=== PATIENT | female | born 1940 | race Caucasian/White ===

== ENCOUNTER 2022-03-20 19:19 | Inpatient (IN) | payer MEDICARE ==
[~2022-03-20] VITALS: Ht 162.6 cm; Wt 54.4 kg
[~2022-03-20 19:19] MED LIST: ARMOUR THYROID30 MG PO; LISINOPRIL20 MG PO; NEXIUM40 M1 PO; PREDNISONE20 MG PO
[2022-03-20 19:52] LABS: BASOPHILS # (AUTO) 0.1 (0.0-0.1); BASOPHILS % 0.8 % (0.0-1.0); EOSINOPHILS # (AUTO) 0.2 (0.0-0.4); EOSINOPHILS % 2.8 % (0.0-6.0); HEMOGLOBIN 13.9 g/dL (12.0-16.0); LYMPHOCYTES # (AUTO) 1.3 (1.0-3.2); LYMPHOCYTES % 17.6 % (18.0-39.1); MEAN CORPUSCULAR HEMOGLOBIN 31.7 pg (28-32); MEAN CORPUSCULAR HGB CONC 34.8 g/dL (31-35); MEAN CORPUSCULAR VOLUME 91.1 fL (81-99); MONOCYTES # (AUTO) 0.6 (0.2-0.8); MONOCYTES % 7.9 % (4.4-11.3); NEUTROPHILS # (AUTO) 5.3 (2.1-6.9); NEUTROPHILS % 69.7 % (38.7-80.0); PLATELET COUNT 171 x10e3/uL (140-360); RED BLOOD COUNT 4.39 x10e6/uL (3.6-5.1); RED CELL DISTRIBUTION WIDTH 15.7 % (11.7-14.4)
[2022-03-20 20:27] LABS: ALBUMIN 2.5 g/dL (3.5-5.0); ANION GAP 16.6 mmol/L (8-16); CALCIUM 7.9 mg/dL (8.4-10.2); CREATININE, SERUM 2.06 mg/dL (0.57-1.11); POTASSIUM 3.6 mmol/L (3.5-5.1)
[2022-03-20 21:57] LABS: CLARITY,URINE SL CLOUDY (CLEAR); COLOR,URINE AMBER (YELLOW); KETONES,URINE TRACE (NEGATIVE); LEUKOCYTE ESTERASE ,URINE MODERATE (NEGATIVE); NITRITE,URINE NEGATIVE (NEGATIVE); PROTEIN,URINE DIPSTICK TRACE (NEGATIVE); URINE UROBILINOGEN 0.2 mg/dL (0.2 - 1)
[2022-03-20 22:00] VITALS: BP 117/82
[2022-03-20 22:07] LABS: BACTERIA,URINE FEW /HPF; EPITHELIAL CELLS,URINE RARE /LPF; RBC,URINE 0-5 /HPF (0-5)
[2022-03-20 22:08] LABS: AMORPHOUS SEDIMENT,URINE MODERATE (FEW); YEAST,URINE MODERATE
[2022-03-20] MEDS ORDERED: FLUCONAZOLE 200 MG/100 ML 100 ML IV SCH (23:40)
[2022-03-20] MEDS: SODIUM CHLORIDE 0.9% 1000ML 1,000 ML IV SCH (23:43)
[2022-03-20] MEDS ORDERED: FLUCONAZOLE 200 MG/100 ML 100 ML IV ONE (23:47)
[2022-03-21] VITALS (7 sets, daily range): BP systolic 92–117; BP diastolic 59–82
[2022-03-21 05:43] LABS: BASOPHILS # (AUTO) 0.1 (0.0-0.1); BASOPHILS % 0.8 % (0.0-1.0); EOSINOPHILS # (AUTO) 0.2 (0.0-0.4); EOSINOPHILS % 3.8 % (0.0-6.0); HEMOGLOBIN 12.4 g/dL (12.0-16.0); LYMPHOCYTES # (AUTO) 1.8 (1.0-3.2); LYMPHOCYTES % 28.2 % (18.0-39.1); MEAN CORPUSCULAR HEMOGLOBIN 31.5 pg (28-32); MEAN CORPUSCULAR HGB CONC 34.4 g/dL (31-35); MEAN CORPUSCULAR VOLUME 91.4 fL (81-99); MONOCYTES # (AUTO) 0.5 (0.2-0.8); NEUTROPHILS # (AUTO) 3.7 (2.1-6.9); NEUTROPHILS % 58.1 % (38.7-80.0); PLATELET COUNT 154 x10e3/uL (140-360); RED BLOOD COUNT 3.94 x10e6/uL (3.6-5.1); RED CELL DISTRIBUTION WIDTH 15.5 % (11.7-14.4)
[2022-03-21 05:59] LABS: ANION GAP 11.1 mmol/L (8-16); CALCIUM 7.7 mg/dL (8.4-10.2); CREATININE, SERUM 1.82 mg/dL (0.57-1.11); POTASSIUM 3.1 mmol/L (3.5-5.1)
[2022-03-21] MEDS ORDERED: POTASSIUM CHLORIDE 10MEQ EA PO ONE ×2 (09:00→11:00)
[2022-03-21] MEDS: SODIUM CHLORIDE 0.9% 1000ML 1,000 ML IV SCH ×3 (09:21→20:10)
[2022-03-21] MEDS ORDERED: DIPHENHYDRAMINE HCL 25 MG CAP PO ONE (10:15)
[2022-03-21 10:17] LABS: INR 0.96; PROTHROMBIN TIME 13.7 seconds (11.9-14.5)
[2022-03-21 10:18] LABS: PARTIAL THROMBOPLASTIN TIME 25.9 seconds (23.8-35.5)
[2022-03-21] MEDS: BACITRACIN ZINC 15 GM OINT TOP SCH (15:00)
[2022-03-21] MEDS: DIPHENHYDRAMINE HCL 25 MG CAP PO PRN ×2 (15:27→22:35)
[2022-03-21] MEDS: FLUCONAZOLE 200 MG/100 ML 100 ML IV SCH (20:10)
[2022-03-21] MEDS: TRAMADOL HCL 50 MG TAB PO PRN (23:38)
[2022-03-22 01:01] VITALS: BP 112/71
[2022-03-22] MEDS: SODIUM CHLORIDE 0.9% 1000ML 1,000 ML IV SCH ×3 (04:22→21:19)
[2022-03-22 05:48] VITALS: BP 115/74
[2022-03-22 06:04] LABS: HEMATOCRIT 38.9 % (34.2-44.1); HEMOGLOBIN 12.8 g/dL (12.0-16.0); RED BLOOD COUNT 4.08 x10e6/uL (3.6-5.1)
[2022-03-22 06:05] LABS: BASOPHILS # (AUTO) 0.1 (0.0-0.1); BASOPHILS % 0.9 % (0.0-1.0); EOSINOPHILS # (AUTO) 0.3 (0.0-0.4); EOSINOPHILS % 3.9 % (0.0-6.0); LYMPHOCYTES # (AUTO) 1.5 (1.0-3.2); LYMPHOCYTES % 23.7 % (18.0-39.1); MEAN CORPUSCULAR HEMOGLOBIN 31.4 pg (28-32); MEAN CORPUSCULAR HGB CONC 32.9 g/dL (31-35); MEAN CORPUSCULAR VOLUME 95.3 fL (81-99); MONOCYTES # (AUTO) 0.5 (0.2-0.8); MONOCYTES % 8.3 % (4.4-11.3); NEUTROPHILS # (AUTO) 3.9 (2.1-6.9); NEUTROPHILS % 61.5 % (38.7-80.0); PLATELET COUNT 155 x10e3/uL (140-360); RED CELL DISTRIBUTION WIDTH 15.9 % (11.7-14.4)
[2022-03-22 06:32] LABS: CALCIUM 7.7 mg/dL (8.4-10.2); CREATININE, SERUM 1.58 mg/dL (0.57-1.11)
[2022-03-22 08:27] VITALS: BP 100/62
[2022-03-22] MEDS: PREDNISONE 10 MG TAB PO SCH (09:36)
[2022-03-22] MEDS: THYROID 60 MG TAB PO SCH (09:36)
[2022-03-22 11:41] VITALS: BP 91/69
[2022-03-22] MEDS: BACITRACIN ZINC 15 GM OINT TOP SCH (14:59)
[2022-03-22 16:18] VITALS: BP 104/74
[2022-03-22] MEDS: TRAMADOL HCL 50 MG TAB PO PRN (17:00)
[2022-03-22] MEDS: DIPHENHYDRAMINE HCL 25 MG CAP PO PRN (17:23)
[2022-03-22 20:23] VITALS: BP 115/82
[2022-03-22] MEDS: FLUCONAZOLE 200 MG/100 ML 100 ML IV SCH (21:00)
[2022-03-23] VITALS (7 sets, daily range): BP systolic 103–119; BP diastolic 64–81
[2022-03-23] MEDS: TRAMADOL HCL 50 MG TAB PO PRN ×2 (00:42→21:13)
[2022-03-23] MEDS: DIPHENHYDRAMINE HCL 25 MG CAP PO PRN ×2 (00:42→21:12)
[2022-03-23 06:23] LABS: BASOPHILS # (AUTO) 0.1 (0.0-0.1); BASOPHILS % 0.6 % (0.0-1.0); EOSINOPHILS # (AUTO) 0.2 (0.0-0.4); EOSINOPHILS % 1.9 % (0.0-6.0); HEMATOCRIT 38.5 % (34.2-44.1); HEMOGLOBIN 13.1 g/dL (12.0-16.0); LYMPHOCYTES # (AUTO) 1.6 (1.0-3.2); LYMPHOCYTES % 19.5 % (18.0-39.1); MEAN CORPUSCULAR HEMOGLOBIN 31.6 pg (28-32); MEAN CORPUSCULAR VOLUME 92.8 fL (81-99); MONOCYTES # (AUTO) 0.6 (0.2-0.8); MONOCYTES % 7.7 % (4.4-11.3); NEUTROPHILS # (AUTO) 5.7 (2.1-6.9); PLATELET COUNT 178 x10e3/uL (140-360); RED BLOOD COUNT 4.15 x10e6/uL (3.6-5.1); RED CELL DISTRIBUTION WIDTH 16.4 % (11.7-14.4)
[2022-03-23 06:53] LABS: ALBUMIN 2.2 g/dL (3.5-5.0); ALBUMIN/GLOBULIN RATIO 1.1 (0.8-2.0); ANION GAP 12.6 mmol/L (8-16); CALCIUM 8.1 mg/dL (8.4-10.2); CREATININE, SERUM 1.69 mg/dL (0.57-1.11); POTASSIUM 5.6 mmol/L (3.5-5.1)
[2022-03-23] MEDS: SODIUM CHLORIDE 0.9% 1000ML 1,000 ML IV SCH ×3 (07:00→23:00)
[2022-03-23] MEDS: PREDNISONE 10 MG TAB PO SCH (09:00)
[2022-03-23] MEDS: THYROID 60 MG TAB PO SCH (09:00)
[2022-03-23 09:35] LABS: ANION GAP 14.4 mmol/L (8-16); CALCIUM 7.9 mg/dL (8.4-10.2); CREATININE, SERUM 1.69 mg/dL (0.57-1.11); POTASSIUM 5.4 mmol/L (3.5-5.1)
[2022-03-23] MEDS: BACITRACIN ZINC 15 GM OINT TOP SCH (13:52)
[2022-03-23] MEDS ORDERED: FLUCONAZOLE 200 MG/100 ML 100 ML IV SCH ×2 (14:00→18:30)
[2022-03-23] MEDS ORDERED: FLUCONAZOLE 100 MG TAB PO SCH (20:00)
[2022-03-24 01:09] VITALS: BP 117/75
[2022-03-24 01:24] VITALS: BP 107/47
[2022-03-24 05:31] VITALS: BP 92/81
[2022-03-24 05:32] LABS: BASOPHILS % 0.5 % (0.0-1.0); EOSINOPHILS # (AUTO) 0.1 (0.0-0.4); EOSINOPHILS % 1.3 % (0.0-6.0); HEMATOCRIT 39.3 % (34.2-44.1); HEMOGLOBIN 13.1 g/dL (12.0-16.0); LYMPHOCYTES # (AUTO) 1.9 (1.0-3.2); MEAN CORPUSCULAR HEMOGLOBIN 31.5 pg (28-32); MEAN CORPUSCULAR HGB CONC 33.3 g/dL (31-35); MEAN CORPUSCULAR VOLUME 94.5 fL (81-99); MONOCYTES # (AUTO) 0.7 (0.2-0.8); MONOCYTES % 8.5 % (4.4-11.3); NEUTROPHILS # (AUTO) 5.4 (2.1-6.9); NEUTROPHILS % 65.4 % (38.7-80.0); PLATELET COUNT 154 x10e3/uL (140-360); RED BLOOD COUNT 4.16 x10e6/uL (3.6-5.1); RED CELL DISTRIBUTION WIDTH 16.5 % (11.7-14.4)
[2022-03-24 05:56] LABS: ANION GAP 13.9 mmol/L (8-16); CALCIUM 7.3 mg/dL (8.4-10.2); CREATININE, SERUM 1.67 mg/dL (0.57-1.11); POTASSIUM 5.9 mmol/L (3.5-5.1)
[2022-03-24] MEDS: SODIUM CHLORIDE 0.9% 1000ML 1,000 ML IV SCH (07:00)
[2022-03-24] MEDS ORDERED: SOD POLYSTYRENE SULFONATE SUSP 15 GM/60 ML BTL PO ONE (08:00)
[2022-03-24 08:51] VITALS: BP 110/66
[2022-03-24 09:10] VITALS: BP 110/66
[2022-03-24] MEDS: THYROID 60 MG TAB PO SCH (10:15)
[2022-03-24] MEDS: BACITRACIN ZINC 15 GM OINT TOP SCH (10:15)
[2022-03-24] MEDS: PREDNISONE 10 MG TAB PO SCH (10:15)
== END 2022-03-24 11:48 | disposition hospice, inpatient (51) | DRG 682 ==
LOC: ER 19:26 → ERHOLD 22:56 → MED/SURG3 23:57 → OBSVTOIN 03-21 09:17
PROVIDERS: ADMIT Internal Medicine; ATTEND Internal Medicine
DX: N17.9 Acute kidney failure, unspecified (principal); E43 Unspecified severe protein-calorie malnutrition; I13.0 Hypertensive heart and chronic kidney disease with heart failure and stage 1 through stage 4 chronic kidney disease, or unspecified chronic kidney disease; I50.32 Chronic diastolic (congestive) heart failure; B37.49 Other urogenital candidiasis; E87.1 Hypo-osmolality and hyponatremia; Z68.20 Body mass index [BMI] 20.0-20.9, adult; Z66 Do not resuscitate; R62.7 Adult failure to thrive; E78.5 Hyperlipidemia, unspecified; Z20.822 Contact with and (suspected) exposure to COVID-19; G70.00 Myasthenia gravis without (acute) exacerbation; E87.6 Hypokalemia; F32.9 Major depressive disorder, single episode, unspecified; N18.30 Chronic kidney disease, stage 3 unspecified; K21.9 Gastro-esophageal reflux disease without esophagitis; Z79.899 Other long term (current) drug therapy
CPT/HCPCS: 36415; 70450; 71045; 80048; 80053; 81001; 83880; 84443; 84484; 85025; 85610; 85730; 87086; 93005; 94799; 96361; 97139; 99251; 99284; G0378; J1450; J7030; J7512; U0002